=== PATIENT | female | born 1950 | race Caucasian/White ===

== ENCOUNTER → 2019-08-13 | Outpatient (CLI) | payer OTHER | LOC: LAB 09:47 | DX: R11.0 Nausea (principal); R53.83 Other fatigue; M79.10 Myalgia, unspecified site; R51 Headache; R06.7 Sneezing; R09.89 Other specified symptoms and signs involving the circulatory and respiratory systems; Z20.828 Contact with and (suspected) exposure to other viral communicable diseases ==

== ENCOUNTER 2020-05-22 08:55 | Emergency (ER) | payer OTHER ==
[2020-05-22] MEDS ORDERED: CARTIA XT300 MG PO (09:10)
[2020-05-22] MEDS ORDERED: TAPAZOLE 5MG TAB5 MG PO (09:10)
[2020-05-22] MEDS ORDERED: QUINAPRIL HCL10 MG PO (09:10)
[2020-05-22] MEDS ORDERED: ATORVASTATIN CA40 MG PO (09:10)
[2020-05-22 10:44] VITALS: BP 133/64
== END 2020-05-22 10:45 | disposition home or self-care (01) ==
LOC: ED 08:55
DX: S63.521A Sprain of radiocarpal joint of right wrist, initial encounter (principal); S93.511A Sprain of interphalangeal joint of right great toe, initial encounter; I10 Essential (primary) hypertension; W21.01XA Struck by football, initial encounter; Y93.61 Activity, american tackle football; Y92.009 Unspecified place in unspecified non-institutional (private) residence as the place of occurrence of the external cause